=== PATIENT | male | born 1945 | race Caucasian/White ===

== ENCOUNTER 2017-07-25 18:51 | Emergency (ER) | payer MEDICARE ==
[~2017-07-25] VITALS: Ht 172.7 cm; Wt 89.3 kg
[~2017-07-25 18:51] MED LIST: META800 PO; TRAM50 PO; Z.0.NO CURRENT MEDS
[2017-07-25 18:59] VITALS: BP 155/90; PULSE 72; RESP 16; TEMP 98.2; O2SAT 95
--- NOTE | 2017-07-25 19:28 | PD ---
HPI Chief Complaint: Injury Time Seen by Provider: 19:21 Travel History International Travel<30 days: No Contact w/Intl Traveler<30days: No Traveled to known affect area: No History of Present Illness HPI Patient was in complaining of left ankle pain status post mechanical fall that occurred shortly prior to arrival. Patient states he was walking downstairs when his right foot slipped on a can causing him to roll his left ankle and landed on it. Patient applied ice and took ibuprofen prior to coming to the emergency department as well as parking 1 of his cars in the cars. Patient describes pain as a burning throbbing like in nature that is worse with walking. Denies any head injury or loss of consciousness. Denies any numbness or tingling anywhere. Denies any radiation of the pain. Patient has an abrasion noted on the ankle states his tetanus shot is up-to-date. PFSH Past Medical History Arthritis: No Asthma: No Autoimmune Disease: No Blood Disorders: No Heart Rhythm Problems: No Cancer: No Cardiovascular Problems: No High Cholesterol: No Chest Pain: No Congestive Heart Failure: No COPD: No Cerebrovascular Accident: No Diabetes: No Diminished Hearing: No Endocrine: No Gastrointestinal Disorders: Yes GERD: Yes Glaucoma: No Genitourinary: No Headaches: No Hepatitis: No Hiatal Hernia: Yes (GERD) Hypertension: No Immune Disorder: No Kidney Stones: No Musculoskeletal: No Neurologic: No Psychiatric: No Reproductive: No Respiratory: No Myocardial Infarction: No Renal Failure: No Seizures: No Sickle Cell Disease: No Sleep Apnea: No Thyroid Disease: No Ulcer: No Past Surgical History Abdominal Surgery: No AICD: No Cardiac Surgery: No Ear Surgery: No Endocrine Surgery: No Eye Surgery: No Genitourinary Surgery: No Gynecologic Surgery: No Joint Replacement: No Oral Surgery: No Pacemaker: No Thoracic Surgery: No Tonsillectomy: Yes Other Surgery: Yes (RT HAND TRIGGER FINGER RELEASE 2010) Social History Alcohol Use: Yes (OCCAS. WINE, BEER) Tobacco Use: No Substance Use: No Allergies-Medications (Allergen,Severity, Reaction): Coded Allergies: penicillin G (Unverified Allergy, Unknown, 03/27/17) Reported Meds & Prescriptions Reported Meds & Active Scripts Active No Active Prescriptions or Reported Medications Review of Systems Except as stated in HPI: all other systems reviewed are Neg Physical Exam Narrative GENERAL: Well-developed, overly nourished, in no acute distress, and non-ill appearing. SKIN: Focused skin assessment warm and dry. Superficial abrasion medial aspect left ankle. There is no foreign body noted. HEAD: Atraumatic. Normocephalic. EYES: Pupils equal and round. EOMI. No scleral icterus. No injection or drainage. ENT: No nasal bleeding or discharge. Mucous membranes pink and moist. NECK: Trachea midline. Supple. No nuclear rigidity. CARDIOVASCULAR: Dorsal pulses 2+, intact, equal bilaterally. Capillary refill less than 2 seconds. RESPIRATORY: No accessory muscle use. No respiratory distress. MUSCULOSKELETAL: No obvious deformities. No clubbing. No cyanosis. No edema. Full range of motion. Ankle: Neagative anterior draw and Willis test. Negative Jovita's sign. No laxity noted with passive inversion and eversion of BL ankles. Negative squeeze test. Pulses equal BL distal to injury. Capillary refill less than 2 seconds distal to injury and equal BL. Sensation equal BL 1st web space. FROM of toes distal to injury and equal BL. NV intact distal to injury and equal BL. Dorsal pulses equal BL. Soft tissue swelling noted left ankle. There is no crepitus. Patient reports point tenderness over medial aspect of left ankle. NEUROLOGICAL: Awake and alert. No obvious cranial nerve deficits. Motor grossly within normal limits. Normal speech. PSYCHIATRIC: Appropriate mood and affect; insight and judgment normal. Data Data Last Documented VS Vital Signs Date Time Temp Pulse Resp B/P (MAP) Pulse Ox O2 Delivery O2 Flow Rate FiO2 07/25/17 18:59 98.2 72 16 155/90 (111) 95 Orders Orders Wound Care (07/25/17 19:25) Ankle, Complete ([id number]) (07/25/17 ) Ice/Cold Pack (07/25/17 19:25) Splint Or Brace Apply/Monitor (07/25/17 20:14) Ed Discharge Order (07/25/17 20:27) [facility] Medical Decision Making Medical Screen Exam Complete: Yes Emergency Medical Condition: Yes Differential Diagnosis Fracture, sprain, contusion, dislocation, abrasion, laceration Narrative Course There is no clinical evidence for fracture. There is no clinical evidence to suspect bony injury by exam. Radiographic examination revealed no fracture seen at this time. No obvious ligamental injury or internal derangement is noted at this time. The distal extremity appears neurovascularly intact, without evidence of neurovascular injury nor compartment syndrome. Tendon exam also was intact. The effected limb was splinted. The patient was discharged with sprain and splint care instructions and given warnings for vascular compromise. The patient is to follow up with Orthopedics. The patient agrees with plan. Patient in no obvious distress upon re-evaluation. All pertinent Radiology result(s) discussed with patient. Any questions/concerns in reference to patient diagnosis/condition discussed and clarified prior to patient's discharge. Reinforced sheer importance of close follow up with patient's primary physician or primary care clinic. Instructed patient to return to ED immediately, if symptoms return/worsen. Patient showed understanding of above instructions. Further instructions and recommendations were detailed in discharge paperwork. Patient ambulated without difficulty out of ED at discharge. Diagnosis Primary Impression: Left ankle sprain Qualified Codes: S93.402A - Sprain of unspecified ligament of left ankle, initial encounter Additional Impression: Abrasion Referrals: Inder Mahajan MD Patient Instructions: Ankle Sprain (GEN), Ankle Sprain Exercises (GEN), Ankle Stirrup Splint (ED), General Instructions Additional Instructions: Follow-up with your primary care physician and/or orthopedic in 2-3 days for reevaluation. Use [id number] Tylenol as needed for pain. Follow instructions on the packaging. Apply ice to affected area 20 minutes per hour as needed for pain. Elevate effected limb to decrease pain and swelling. Return to the emergency department if symptoms get worse. Scripts No Active Prescriptions or Reported Meds Disposition: 01 DISCHARGE HOME Condition: Stable Arnav Garvey Jul 25, 2017 19:28
--- NOTE | 2017-07-25 20:07 | RADRPT ---
EXAM DATE/TIME: 07/25/2017 19:47 [facility] COMPARISON: No previous studies available for comparison. INDICATIONS : Fell, complains of pain and swelling of medial left ankle. MEDICAL HISTORY : None. SURGICAL HISTORY : ENCOUNTER: Initial ACUITY: 2 days PAIN SCORE: 5/10 LOCATION: Left medial ankle FINDINGS: Three view exam was performed of the left ankle. The bony structures are in normal alignment. No ev idence of fracture, dislocation. The ankle mortise is intact. No radiopaque foreign bodies are seen. Bony mineralization is normal. CONCLUSION: Soft tissue swelling of the lateral malleolus. No acute bony abnormality. Jose Bertrand MD on July 25, 2017 at 20:04 Board Certified Radiologist. This report was verified electronically.
== END 2017-07-25 20:46 | disposition home or self-care (01) ==
LOC: PHEFT 18:51
DX: S93.402A Sprain of unspecified ligament of left ankle, initial encounter (principal); S90.512A Abrasion, left ankle, initial encounter; W10.9XXA Fall (on) (from) unspecified stairs and steps, initial encounter; Y93.01 Activity, walking, marching and hiking
CPT/HCPCS: 73610; 99283; L1906